=== PATIENT | female | born 1950 | race Caucasian/White ===

== ENCOUNTER 2018-04-01 12:13 | Emergency (ER) | payer MEDICARE, BC ==
[2018-04-01] MEDS ORDERED: Sodium Chloride 0.9% 10 ML Syringe FLUSH PRN (12:19)
[2018-04-01 13:18] LABS: CHLORIDE,CL 104 mmol/L (98-107); SODIUM,NA 142 mmol/L (136-145)
[2018-04-01] MEDS ORDERED: Warfarin 5 MG Tab PO ONE (13:38)
[2018-04-01] MEDS ORDERED: Enoxaparin 60 MG/0.6 ML Syringe SUBCUT ONE (13:44)
--- NOTE | 2018-04-01 13:58 | EDM.PDOC ---
ED HPI GENERAL MEDICAL PROBLEM - General Chief Complaint: Lower Extremity Injury/Pain Stated Complaint: POSSIBLE DVT Time Seen by Provider: 04/01/18 12:18 Source of Information: Reports: Patient, Family History Limitations: Reports: No Limitations - History of Present Illness INITIAL COMMENTS - FREE TEXT/NARRATIVE: Patient is brought in by her with complaints of right leg pain from her calf to the right buttock. She does receive chemo for metastatic breast cancer. Pain in the leg started yesterday and has only progressively worsened. She denies chest pain, denies SOB, denies back or abdominal pain. 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 very involved in care and does schedule all appointments due to her poor memory. Pleasant couple. No nausea or vomiting, chills, fever, blood in urine or stool. No extremity weakness. Onset: Sudden Duration: Getting Worse Location: Reports: Lower Extremity, Right Associated Symptoms: Reports: No Other Symptoms Right Leg Pain Score (Numeric/FACES): 2 - Related Data Allergies Allergy/AdvReac Type Severity Reaction Status Date / Time Penicillins Allergy Rash Verified 03/12/18 12:38 Sulfa (Sulfonamide Allergy Rash Verified 03/12/18 12:38 Antibiotics) Home Meds: Home Meds Aspirin 650 mg PO DAILY PRN 03/12/18 [History] Past Medical History Oncologic (Cancer) History: Reports: Breast, Liver - Past Surgical History Oncologic Surgical History: Reports: Mastectomy Social & Family History - Tobacco Use Smoking Status *Q: Unknown Ever Smoked Review of Systems - Review of Systems Review Of Systems: See Below Constitutional: Reports: No Symptoms Eyes: Reports: No Symptoms Ears: Reports: No Symptoms Nose: Reports: No Symptoms Mouth/Throat: Reports: No Symptoms Respiratory: Reports: No Symptoms Cardiovascular: Reports: No Symptoms GI/Abdominal: Reports: No Symptoms Genitourinary: Reports: No Symptoms Musculoskeletal: Reports: Leg Pain (right leg, calf to buttock) Skin: Reports: No Symptoms Neurological: Reports: No Symptoms Psychiatric: Reports: No Symptoms ED EXAM, GENERAL - Physical Exam Exam: See Below Exam Limited By: No Limitations General Appearance: Alert, WD/WN, No Apparent Distress Eye Exam: Bilateral Eye: EOMI, PERRL Ears: Normal TMs Nose: Normal Inspection, Normal Mucosa, No Blood Throat/Mouth: Normal Inspection, Normal Lips, Normal Teeth, Normal Gums, Normal Oropharynx, Normal Voice, No Airway Compromise Head: Atraumatic, Normocephalic Neck: Normal Inspection, Supple, Non-Tender, Full Range of Motion Respiratory/Chest: No Respiratory Distress, Lungs Clear, Normal Breath Sounds, No Accessory Muscle Use, Chest Non-Tender Cardiovascular: Normal Peripheral Pulses, Regular Rate, Rhythm, No Edema, No Gallop, No JVD, No Murmur, No Rub Peripheral Pulses: 2+: Posterior Tibial (L), Posterior Tibial (R), Dorsalis Pedis (L), Dorsalis Pedis (R) GI/Abdominal: Normal Bowel Sounds, Soft, Non-Tender, No Organomegaly, No Distention, No Abnormal Bruit, No Mass (Female) Exam: Deferred Rectal (Female) Exam: Deferred Back Exam: Normal Inspection, Full Range of Motion, NT Extremities: Normal Inspection, Normal Range of Motion, No Pedal Edema, Normal Capillary Refill, Leg Pain (pain to palpation to posterior right leg). No: Alvin's Sign, Increased Warmth, Redness Neurological: Alert, Oriented, CN II-XII Intact, Normal Cognition, Normal Gait, Normal Reflexes, No Motor/Sensory Deficits Psychiatric: Normal Affect, Normal Mood Skin Exam: Warm, Dry, Intact, Normal Color, No Rash Lymphatic: No Adenopathy Course - Vital Signs Last Recorded V/S: Last Vital Signs Temp 36.6 C 04/01/18 12:18 Pulse 90 04/01/18 12:18 Resp 16 04/01/18 12:18 BP 155/87 H 04/01/18 12:18 Pulse Ox 99 04/01/18 12:18 - Orders/Labs/Meds Orders: Active Orders 24 hr Category Date Time Status EKG 12 Lead [EKG Documentation Completion] [RC] STAT Care 04/01/18 12:37 Active Saline Lock Insert [OM.PC] Routine Oth 04/01/18 12:19 Ordered Labs: Laboratory Tests 04/01/18 04/01/18 04/01/18 Range/Units 12:35 12:35 12:35 WBC 3.1 L (4.0-10.0) x10^3/uL RBC 4.06 (4.00-5.50) x10^6/uL Hgb 12.2 D (12.0-16.0) g/dL Hct 37.6 (33.0-47.0) % MCV 92.6 D (78.0-93.0) fL MCH 30.0 (26.0-32.0) pg MCHC 32.4 (32.0-36.0) g/dL RDW Coeff of Celestina 17.8 H (10.0-15.0) % Plt Count 171 (130-400) x10^3/uL Neut % (Auto) 48.0 L (50.0-80.0) % Lymph % (Auto) 38.6 (25.0-50.0) % Starke % (Auto) 11.1 H (2.0-11.0) % Eos % (Auto) 2.0 (0.0-4.0) % Baso % (Auto) 0.3 (0.2-1.2) % PT 10.1 (9.6-11.4) SEC INR 1.0 L (2.0-3.5) D-Dimer, Quantitative 2.42 H (<=0.58) mg/LFEU Sodium 142 (136-145) mmol/L Potassium 4.0 (3.5-5.1) mmol/L Chloride 104 (98-107) mmol/L Carbon Dioxide 27 (21-32) mmol/L Anion Gap 15.0 (10-20) mmol/L BUN 8 (7-18) mg/dL Creatinine 0.8 (0.55-1.02) mg/dL Est Cr Clr Drug Dosing TNP Estimated GFR (MDRD) > 60 Glucose 129 H (74-106) mg/dL Calcium 9.1 (8.5-10.1) mg/dL Corrected Calcium 9.58 (8.5-10.1) mg/dL Total Bilirubin 0.6 (0.2-1.0) mg/dL AST 31 (15-37) U/L ALT 35 (14-59) U/L Alkaline Phosphatase 152 H (46-116) U/L Troponin I < 0.017 (<=0.056) ng/mL C-Reactive Protein 0.8 (<=0.9) mg/dL NT-Pro-B Natriuret Pep 261 H (<=125) pg/mL Total Protein 7.1 (6.4-8.2) g/dL Albumin 3.4 (3.4-5.0) g/dL Globulin 3.7 Albumin/Globulin Ratio 0.92 Meds: Medications Discontinued Medications Generic Name Dose Route Start Last Admin Trade Name Raman PRN Reason Stop Dose Admin Enoxaparin Sodium 60 mg 04/01/18 13:44 04/01/18 14:15 Lovenox SUBCUT 04/01/18 13:45 60 mg ONETIME ONE Administration Sodium Chloride 10 ml 04/01/18 12:19 Saline Flush FLUSH ASDIRECTED PRN Keep Vein Open Warfarin Sodium 5 mg 04/01/18 13:38 04/01/18 14:16 Coumadin PO 04/01/18 13:39 5 mg ONETIME ONE Administration Departure - Departure Time of Disposition: 14:30 Disposition: Home, Self-Care 01 Condition: Fair Clinical Impression: Right leg DVT Qualifiers: Affected thrombotic vein of extremity: unspecified vein of extremity Chronicity : acute Qualified Code(s): I82.401 - Acute embolism and thrombosis of unspecified deep veins of right lower extremity - Discharge Information *PRESCRIPTION DRUG MONITORING PROGRAM REVIEWED*: Not Applicable *COPY OF PRESCRIPTION DRUG MONITORING REPORT IN PATIENT DAMIEN: Not Applicable Instructions: How and Where to Give Subcutaneous Enoxaparin Injections, Deep Vein Thrombosis Referrals: William Cevallos MD [Primary Care Provider] - Forms: ED Department Discharge Additional Instructions: Plan 1. Administer 60 mg lovenox injection twice a day until ultrasound rules out a DVT. Also take warfarin 5 mg until blood clot determined or not. 2. If you do have a blood clot/dvt, you will need to have your doctor tomorrow schedule a repeat INR test to make changes to the warfarin dose as needed 3. You can be more at risk for bleeding when taking these medications. 4. If you have any further questions or concerns, do not hesitate to call the ER here or your primary doctor/oncologist. - Problem List & Annotations (1) Right leg DVT SNOMED Code(s): 449963125 Code(s): I82.401 - ACUTE EMBOLISM AND THOMBOS UNSP DEEP VEINS OF R LOW EXTREM Status: Acute Priority: Medium Qualifiers: Affected thrombotic vein of extremity: unspecified vein of extremity Chronicity: acute Qualified Code(s): I82.401 - Acute embolism and thrombosis of unspecified deep veins of right lower extremity - Problem List Review Problem List Initiated/Reviewed/Updated: Yes - My Orders Last 24 Hours: My Active Orders 04/01/18 12:19 Saline Lock Insert [OM.PC] Routine 04/01/18 12:37 EKG 12 Lead [EKG Documentation Completion] [RC] STAT - Assessment/Plan Last 24 Hours: My Active Orders 04/01/18 12:19 Saline Lock Insert [OM.PC] Routine 04/01/18 12:37 EKG 12 Lead [EKG Documentation Completion] [RC] STAT Assessment:: right leg DVT Plan: Plan 1. Administer 60 mg lovenox injection twice a day until ultrasound rules out a DVT. Also take warfarin 5 mg until blood clot determined or not. 2. If you do have a blood clot/dvt, you will need to have your doctor tomorrow schedule a repeat INR test to make changes to the warfarin dose as needed 3. You can be more at risk for bleeding when taking these medications. 4. If you have any further questions or concerns, do not hesitate to call the ER here or your primary doctor/oncologist.
== END 2018-04-01 14:37 | disposition home or self-care (01) ==
LOC: VM.ED 12:13
DX: I82.401 Acute embolism and thrombosis of unspecified deep veins of right lower extremity (principal); Z88.0 Allergy status to penicillin; Z88.2 Allergy status to sulfonamides
CPT/HCPCS: 36415; 80053; 83880; 84484; 85025; 85379; 85610; 86140; 93005; 96372; 99284-25; A9270-GY; J1650